=== PATIENT | male | born 1990 | race Two or more races ===

== ENCOUNTER 2023-08-19 20:02 | Emergency (ER) | payer OTHER ==
[~2023-08-19] VITALS: Ht 177.8 cm; Wt 63.5 kg
[2023-08-19 20:21] VITALS: BP 130/71; PULSE 112; RESP 18; O2SAT 97
[2023-08-19 21:47] LABS: Alanine Aminotransferase 83 U/L (7-40); Albumin 3.8 g/dL (3.2-4.8); Alkaline Phosphatase 118 U/L (46-116); Anion Gap 14 (5-15); Aspartate Aminotransferase 304 U/L (13-40); Bilirubin, Total 5.9 mg/dL (0.2-1.0); Blood Alcohol 3.6 mg/dL (<10); Calcium 8.6 mg/dL (8.7-10.4); Carbon Dioxide 23 mmol/L (20-30); Chloride 98 mmol/L (98-107); Glucose 118 mg/dL (74-106); Potassium 2.9 mmol/L (3.5-5.1); Sodium 135 mmol/L (136-145); Total Protein 7.2 g/dL (5.7-8.2)
[2023-08-19 21:49] LABS: BUN/Creatinine Ratio 7.1 (10.0-20.0); Blood Urea Nitrogen < 5 mg/dL (9-23)
[2023-08-19 21:52] LABS: Basophils # (auto) 0 10 ^3/uL (0-0.2); Eosinophils # (auto) 0 10 ^3/uL (0-0.8); Hematocrit 37.3 % (41.0-53.0); Lymphocytes # (auto) 1.2 10 ^3/uL (0.4-5.4); Monocytes # (auto) 0.3 10 ^3/uL (0-1.3); Neutrophils # (auto) 2.2 10 ^3/uL (1.6-8.6); White Blood Cell 3.8 10^3/uL (4.4-10.8)
[2023-08-19 21:54] LABS: Basophils % (auto) 0.2 % (0.0-2.0); Eosinophils % (auto) 0.2 % (0.0-7.0); Hemoglobin 12.7 g/dL (13.5-17.5); Lymphocytes % (auto) 32.8 % (10.0-50.0); Mean Corpuscular Hemoglobin 37.9 pg (28.0-32.0); Mean Corpuscular Hgb Conc. 34.1 g/dL (32.0-36.0); Mean Corpuscular Volume 111.3 fL (80.0-100.0); Monocytes % (auto) 8.6 % (0.0-12.0); Neutrophils % (auto) 58.2 % (37.0-80.0); Nucleated Red Blood Cells % 0.2 %; Red Blood Cells 3.35 10^6/uL (4.5-5.90); Red Cell Distribution Width 13.4 % (11.8-14.3)
[2023-08-19 22:19] LABS: Macrocytosis Moderate; Platelet Estimate Decreased
[2023-08-19 22:20] LABS: Stomatocytes Moderate
[2023-08-19] MEDS ORDERED: POTASSIUM EFFERVESENT TAB 25 MEQ GT ONE (23:30)
[2023-08-20] MEDS ORDERED: LEVE500T40 PO (03:34)
== END 2023-08-20 04:04 | disposition home or self-care (01) ==
LOC: EDBD 20:02 → ER 20:02
DX: G40.909 Epilepsy, unspecified, not intractable, without status epilepticus (principal); F10.139 Alcohol abuse with withdrawal, unspecified
CPT/HCPCS: 36415; 70450; 74176; 80053; 80320; 85025